=== PATIENT | female | born 1955 | race Caucasian/White ===

== ENCOUNTER → 2018-11-26 | Day surgery (SDC) | payer OTHER ==
[~2018-11-26] MED LIST: IBUPROFEN400 MG PO; LIPITOR40 MG PO; METFORMIN HCL500 MG PO; SYNTHROID150 MCG PO
== END | disposition home or self-care (01) ==
LOC: ADM 11-20 08:30 → CIR.AMB 07:00
DX: N84.0 Polyp of corpus uteri (principal)